=== PATIENT | male | born 1955 | race Caucasian/White ===

== ENCOUNTER 2017-11-20 15:14 | Inpatient (IN) | payer BC, OTHER ==
--- NOTE | 2017-11-20 16:31 | ED PDOC ---
HPI: Back Time Seen by Provider: 11/20/17 15:54 Chief Complaint (Nursing): Lower Extremity Problem/Injury Chief Complaint (Provider): Low Back Pain History Per: Patient History/Exam Limitations: no limitations Onset/Duration Of Symptoms: Other (several months) Current Symptoms Are (Timing): Still Present Previous Symptoms: Back Pain, Chronic Pain, Prior Surgery Additional Complaint(s): 62 year old male with a past medical history of CAD with a stent, high cholesterol, chronic back pain, and rectal cancer s/p radiation and chemotherapy , who presents to the ED with low back pain ongoing for several months worsening since onset. Patient was diagnosed with herniated discs impinging on nerve and underwent previous back surgery. Since then he has developed a LEFT foot drop. Denies urine or bowel incontinence or retentions. Sent to ER by Neurosurgeon for further evaluation. Patient also reports a small rash on his left buttock. States the rash is itchy, red, and has a slight burning sensation. Says the rash is similar in presentation to a rash he had when diagnosed with shingles. Reports he was given Valtrex in the past with good relief of rash. PMD: Kenia Arias Past Medical History Reviewed: Historical Data, Nursing Documentation, Vital Signs Vital Signs: Last Vital Signs Temp 98.3 F 11/20/17 15:48 Pulse 90 11/20/17 15:48 Resp 16 11/20/17 15:48 BP 152/77 H 11/20/17 15:48 Pulse Ox 100 11/20/17 15:48 - Medical History PMH: Back Problems, CAD (with stent), Hypercholesterolemia Other PMH: Rectal cancer s/p radiation and chemotherapy - Surgical History Surgical History: No Surg Hx - Family History Family History: States: Unknown Family Hx Other Family History: high cholesterol - Social History Current smoker - smoking cessation education provided: No Drugs: Denies - Home Medications Home Medications: Ambulatory Orders Medication Instructions Recorded Aspirin [Ecotrin] 81 mg PO DAILY 11/20/17 Atorvastatin [Lipitor] 20 mg PO DAILY 11/20/17 Cholecalciferol [Vitamin D 1000 IU] 1 tab PO DAILY 11/20/17 Escitalopram [Lexapro] 10 mg PO DAILY 11/20/17 Pregabalin [Lyrica] 75 mg PO Q12 11/20/17 Vitamin E [Vitamin E 400 Units Cap] 1 cap PO DAILY 11/20/17 Zolpidem [Ambien] 10 mg PO HS 11/20/17 Dexamethasone [Decadron] 2 mg PO Q12 #6 tab 11/23/17 traMADol [Ultram] 50 mg PO Q8 #20 tab 11/23/17 - Allergies Allergies/Adverse Reactions: Allergies Allergy/AdvReac Type Severity Reaction Status Date / Time rosuvastatin [From Crestor] Allergy RASH Verified 11/20/17 15:49 percocet Allergy Mild ITCHING Uncoded 11/22/17 18:04 Review of Systems ROS Statement: Except As Marked, All Systems Reviewed And Found Negative Gastrointestinal: Negative for: Constipation Genitourinary Male: Negative for: Dysuria, Frequency, Incontinence Musculoskeletal: Positive for: Back Pain (with left foot drop) Skin: Positive for: Rash (left buttock) Physical Exam - Reviewed Nursing Documentation Reviewed: Yes Vital Signs Reviewed: Yes - Physical Exam Appears: Positive for: Uncomfortable, In Acute Distress (painful distress) Head Exam: Positive for: NORMOCEPHALIC Skin: Positive for: Warm, Dry, Rash (2 cm x 2 cm erythematous rash on left buttock with dew drop papules) Eye Exam: Positive for: EOMI, PERRL ENT: Negative for: Pharyngeal Erythema, Tonsillar Exudate Neck: Positive for: Painless ROM, Supple Cardiovascular/Chest: Positive for: Regular Rate, Rhythm. Negative for: Murmur Respiratory: Positive for: Normal Breath Sounds. Negative for: Respiratory Distress Gastrointestinal/Abdominal: Positive for: Soft. Negative for: Tenderness Back: Positive for: Vertebral Tenderness (diffuse midline and paraspinal tenderness to palpation) Extremity: Positive for: Other (LEFT foot in brace for foot drop). Negative for : Pedal Edema, Deformity Lymphatic: Negative for: Adenopathy Neurologic/Psych: Positive for: Alert, Oriented (x3) - Laboratory Results Result Diagrams: 11/23/17 04:45 11/22/17 05:00 - ECG ECG Rhythm: Positive for: Normal ST Segment, Sinus Rhythm, Nonspecific Changes ( Qs in inferior leads) O2 Sat by Pulse Oximetry: 100 Pulse Ox Interpretation: Normal Medical Decision Making Medical Decision Making: Time: 16:01 Initial Impression: Intractable back pain and mild shingles Initial Plan: --Blood type and screen --EKG --CMP --Magnesium --Phosphorus --ED Urine dipstick --CBC w/ differential --PTT/PT --CXR --Decadron 10 mg IVP --Zovirax 500 mg Inj --IV Insertion --Isolation Type Q12 --Reevaluation --Discussed with Dr. Terrazas, [facility] resident, admitting for Dr. Wharton. Patient will be hospitalized for further neurological management. Accession No. : [id number] Patient Name / ID : DONALD DONALDSON / [id number] Exam Date : 11/20/2017 16:11:53 ( Approved ) Study Comment : Sex / Age : M / 62Y Creator : Alon Cao MD Dictator : Alon Cao MD Software Publisher : Shipping Receiving Clerk : Alon Cao MD Approver2 : Report Date : 11/20/2017 16:38:46 My Comment : HISTORY: severe back pain COMPARISON: No prior. FINDINGS: LUNGS: No active pulmonary disease. PLEURA: No significant pleural effusion identified, no pneumothorax apparent. CARDIOVASCULAR: Normal. OSSEOUS STRUCTURES: Degenerative changes. VISUALIZED UPPER ABDOMEN: Normal. OTHER FINDINGS: Right subclavian access chest port with catheter tip in the distal SVC. IMPRESSION: No active disease. Scribe Attestation: Documented by Pete Green, acting as a scribe for Eliza Bower MD. Provider Scribe Attestation: All medical record entries made by the Scribe were at my direction and personally dictated by me. I have reviewed the chart and agree that the record accurately reflects my personal performance of the history, physical exam, medical decision making, and the department course for this patient. I have also personally directed, reviewed, and agree with the discharge instructions and disposition. Disposition - Clinical Impression Clinical Impression: Lumbar disc disease, Intractable pain, Zoster - Patient ED Disposition Is Patient to be Admitted: Yes Discussed With : Scar Wharton Comment: FP resident Dr Terrazas who evaluated the patient in ER Doctor Will See Patient In The: Hospital Counseled Patient/Family Regarding: Diagnosis - Disposition Disposition Time: 16:06 Condition: STABLE - Pt Status Changed To: Hospital Disposition Of: Inpatient - Admit Certification Admit to Inpatient:: After my assessment, the patient will require hospitalization for at least two midnights. This is because of the severity of symptoms shown, intensity of services needed, and/or the medical risk in this patient being treated as an outpatient. - POA Present On Arrival: Falls Or Trauma (risk)
--- NOTE | 2017-11-20 16:40 | RAD ---
HISTORY: severe back pain COMPARISON: No prior. FINDINGS: LUNGS: No active pulmonary disease. PLEURA: No significant pleural effusion identified, no pneumothorax apparent. CARDIOVASCULAR: Normal. OSSEOUS STRUCTURES: Degenerative changes. VISUALIZED UPPER ABDOMEN: Normal. OTHER FINDINGS: Right subclavian access chest port with catheter tip in the distal SVC. IMPRESSION: No active disease.
[2017-11-20 17:27] LABS: BASO % 0.3 % (0.0-2.0); EOS % 0.6 % (0.0-4.0); HEMOGLOBIN 13.5 g/dL (12.0-18.0); LYMPH # 1.2 K/uL (1.0-4.3); LYMPH % 18.1 % (20.0-40.0); MEAN CELL VOLUME 89.5 fl (80.0-94.0); MEAN CORPUSCULAR HEMOGLOBIN 30.1 pg (27.0-31.0); MEAN CORPUSCULAR HGB CONC 33.6 g/dL (33.0-37.0); MEAN PLATELET VOLUME 7.1 fl (7.2-11.7); MONO # 0.6 K/uL (0.0-0.8); MONO % 8.8 % (0.0-10.0); NEUT # 4.7 K/uL (1.8-7.0); NEUT % 72.2 % (50.0-75.0); NRBC % 0.1 % (0.0-0.0); RBC 4.5 Mil/uL (4.40-5.90); RED CELL DISTRIBUTION WIDTH 13.1 % (11.5-14.5); WHITE BLOOD COUNT 6.5 K/uL (4.8-10.8)
[2017-11-20 17:32] LABS: INR 1.1 (0.9-1.2); PROTHROMBIN TIME 11.8 Seconds (9.8-13.1)
[2017-11-20 17:33] LABS: ALB/GLOB RATIO 1.5 (1.0-2.1); ALBUMIN 4.4 g/dL (3.5-5.0); ALT/SGPT 27 U/L (21-72); AST/SGOT 28 U/L (17-59); BLOOD UREA NITROGEN 18 mg/dl (9-20); CALCIUM 9.7 mg/dL (8.4-10.2); GFR AFRICAN-AMERICAN > 60; GFR NON-AFRICAN AMERICAN > 60; PARTIAL THROMBOPLASTIN TIME 31.5 Seconds (25.6-37.1)
[2017-11-20] MEDS ORDERED: HYDROmorphone 1 mg/ml ISec IVP PRN (20:11)
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
--- NOTE | 2017-11-20 23:18 | CP.PCM.CON ---
History of Present Illness - History of Present Illness History of Present Illness: Consultation for preoperative cardiovascular risk stratification HPI: 62 year old male with hx of CAD s/p PCI in 2000 at at [facility], lumbar disc herniation with back pain s/p surgical excision done at [facility] by complicated by foot drop , rectal ca s/p chemo/radiation last year presenting for surgical correction of lumbar disc herniation by . At baseline patient was very active prior to his last surgery with no active sx of ischemic heart disease. Denies any chest pain , sob, palpitations, dizziness, sycnope. Review of Systems - Review of Systems Systems not reviewed;Unavailable: Acuity of Condition - Constitutional Constitutional: As Per HPI - EENT Eyes: As Per HPI Ears: As Per HPI Nose/Mouth/Throat: As Per HPI - Cardiovascular Cardiovascular: As Per HPI - Respiratory Respiratory: As Per HPI - Gastrointestinal Gastrointestinal: As Per HPI - Genitourinary Genitourinary: As Per HPI - Reproductive: Male Reproductive:Male: As Per HPI - Musculoskeletal Musculoskeletal: As Per HPI, Radiating Pain into Limb - Integumentary Integumentary: As Per HPI - Neurological Neurological: As Per HPI, Focal Weakness, Radicular Pain - Psychiatric Psychiatric: As Per HPI - Endocrine Endocrine: As Per HPI - Hematologic/Lymphatic Hematologic: As Per HPI Past Patient History - Past Medical History & Family History Past Medical History?: Yes - Past Social History Smoking Status: Never Smoked - CARDIAC Hx Cardiac Disorders: Yes Hx Hypercholesterolemia: Yes Other/Comment: Stent in 2000 - PULMONARY Hx Respiratory Disorders: No - NEUROLOGICAL Hx Neurological Disorder: No - HEENT Hx HEENT Problems: No - RENAL Hx Chronic Kidney Disease: No - ENDOCRINE/METABOLIC Hx Endocrine Disorders: No - HEMATOLOGICAL/ONCOLOGICAL Hx Blood Disorders: Yes Hx Cancer: Yes (Rectal) - INTEGUMENTARY Hx Dermatological Problems: No - MUSCULOSKELETAL/RHEUMATOLOGICAL Hx Musculoskeletal Disorders: No Hx Falls: No - GASTROINTESTINAL Hx Gastrointestinal Disorders: Yes (Rectal cancer) - GENITOURINARY/GYNECOLOGICAL Hx Genitourinary Disorders: No - PSYCHIATRIC Hx Psychophysiologic Disorder: No Hx Substance Use: No - SURGICAL HISTORY Hx Surgeries: Yes Other/Comment: back SX - ANESTHESIA Hx Anesthesia: Yes Hx Anesthesia Reactions: No Meds Allergies/Adverse Reactions: Allergies Allergy/AdvReac Type Severity Reaction Status Date / Time rosuvastatin [From Crestor] Allergy RASH Verified 11/20/17 15:49 - Medications Medications: Current Medications Aspirin (Ecotrin) 81 mg PO DAILY [facility] Atorvastatin Calcium (Lipitor) 20 mg PO HS [facility] Last Admin: 11/20/17 21:19 Dose: 20 mg Escitalopram Oxalate (Lexapro) 10 mg PO DAILY [facility] Hydromorphone HCl (Dilaudid) 1 mg IVP Q4 PRN PRN Reason: Pain, moderate (4-7) Dextrose/Lactated Ringer's (Dextrose 5%/Lactated Ringer's) 1,000 mls @ 80 mls/ hr IV .[id number] [facility] Stop: 11/21/17 20:15 Ondansetron HCl (Zofran Inj) 4 mg IVP Q8 PRN PRN Reason: Nausea/Vomiting Pregabalin (Lyrica) 75 mg PO Q12 [facility] Last Admin: 11/20/17 21:19 Dose: 75 mg Vitamin E (Vitamin E 400 Units Cap) 400 intlu PO DAILY [facility] Zolpidem Tartrate (Ambien) 5 mg PO [facility] Physical Exam - Constitutional Appears: Well - Head Exam Head Exam: ATRAUMATIC, NORMAL INSPECTION, NORMOCEPHALIC - Eye Exam Eye Exam: EOMI, Normal appearance, PERRL Pupil Exam: NORMAL ACCOMODATION, PERRL - ENT Exam ENT Exam: Mucous Membranes Moist, Normal Exam - Neck Exam Neck exam: Positive for: Normal Inspection - Respiratory Exam Respiratory Exam: Clear to Auscultation Bilateral, NORMAL BREATHING PATTERN - Cardiovascular Exam Cardiovascular Exam: REGULAR RHYTHM, RRR, +S1, +S2, Systolic Murmur - GI/Abdominal Exam GI & Abdominal Exam: Normal Bowel Sounds, Soft. absent: Tenderness - Extremities Exam Extremities exam: Positive for: normal inspection - Back Exam Back exam: NORMAL INSPECTION - Neurological Exam Neurological exam: Alert, CN II-XII Intact, Oriented x3 - Psychiatric Exam Psychiatric exam: Normal Affect, Normal Mood - Skin Skin Exam: Dry, Intact, Normal Color, Warm Results - Vital Signs Recent Vital Signs: Last Vital Signs Temp 97.8 F 11/20/17 21:58 Pulse 81 11/20/17 22:15 Resp 18 11/20/17 22:15 BP 127/78 11/20/17 21:58 Pulse Ox 97 11/20/17 22:15 - Labs Result Diagrams: 11/20/17 17:15 02/27/18 17:15 Labs: Laboratory Results - last 24 hr 11/20/17 11/20/17 11/20/17 17:00 17:15 17:15 WBC 6.5 RBC 4.50 Hgb 13.5 Hct 40.3 MCV 89.5 MCH 30.1 MCHC 33.6 RDW 13.1 Plt Count 239 MPV 7.1 L Neut % (Auto) 72.2 Lymph % (Auto) 18.1 L [place] % (Auto) 8.8 Eos % (Auto) 0.6 Baso % (Auto) 0.3 Neut # (Auto) 4.7 Lymph # (Auto) 1.2 [place] # (Auto) 0.6 Eos # (Auto) 0.0 Baso # (Auto) 0.0 PT INR APTT Sodium 144 Potassium 4.3 Chloride 103 Carbon Dioxide 28 Anion Gap 17 BUN 18 Creatinine 0.9 Est GFR ( Amer) > 60 Est GFR (Non-Af Amer) > 60 Random Glucose 88 Calcium 9.7 Phosphorus 3.8 Magnesium 2.0 Total Bilirubin 0.5 AST 28 ALT 27 Alkaline Phosphatase 59 Total Protein 7.4 Albumin 4.4 Globulin 3.0 Albumin/Globulin Ratio 1.5 Blood Type A POSITIVE Antibody Screen Negative BBK History Checked No verified bt 11/20/17 17:15 WBC RBC Hgb Hct MCV MCH MCHC RDW Plt Count MPV Neut % (Auto) Lymph % (Auto) [place] % (Auto) Eos % (Auto) Baso % (Auto) Neut # (Auto) Lymph # (Auto) [place] # (Auto) Eos # (Auto) Baso # (Auto) PT 11.8 INR 1.1 APTT 31.5 Sodium Potassium Chloride Carbon Dioxide Anion Gap BUN Creatinine Est GFR ( Amer) Est GFR (Non-Af Amer) Random Glucose Calcium Phosphorus Magnesium Total Bilirubin AST ALT Alkaline Phosphatase Total Protein Albumin Globulin Albumin/Globulin Ratio Blood Type Antibody Screen BBK History Checked Assessment & Plan (1) Preop cardiovascular exam Assessment and Plan: as per ACc/AHA guidelines he can proceed with planned surgery with low risk for perioperative cardiac event Status: Acute (2) Hx of coronary artery disease Assessment and Plan: cont asa, statins EKG reviewed, old inferior UT consider adding low dose BB Status: Acute (3) Hx of percutaneous transluminal coronary angioplasty Status: Acute (4) Lumbar disc disease Status: Acute
[2017-11-21] MEDS: Dextrose 5%/Lactated Ringer's 1,000 ML IV SCH ×2 (05:51→20:41)
[2017-11-21] MEDS ORDERED: Etomidate 20 mg/10ml Inj IV ONE (07:09)
[2017-11-21] MEDS ORDERED: Succinylcholine 200 mg/10 ml Inj IV ONE (07:09)
[2017-11-21] MEDS ORDERED: Rocuronium 10 mg/ml (5 ml) ONE ×2 (07:09→08:50)
[2017-11-21] MEDS ORDERED: Propofol 10 mg/ml Inj (20 ML) ONE (07:09)
[2017-11-21] MEDS ORDERED: Lidocaine 4% (Laryng-O-Jet) Kit MM ONE (07:09)
[2017-11-21] MEDS ORDERED: Bupivacaine HCl 0.25% PF (30 ml) Inj ONE (07:12)
[2017-11-21] MEDS ORDERED: Absorbable Gelatin Sponge Size 12-7 ONE (07:12)
[2017-11-21] MEDS ORDERED: Lidocaine 1% w Epi 1:100,000 Inj ONE (07:12)
[2017-11-21] MEDS ORDERED: Thrombin Topical 5,000 Int Units Spray Kit ONE (07:13)
[2017-11-21] MEDS ORDERED: Dexamethasone 4 mg/1 ml ONE (07:14)
[2017-11-21] MEDS ORDERED: Lactated Ringer's 1,000 ML IV ONE ×2 (07:40→07:45)
[2017-11-21] MEDS ORDERED: Midazolam 2 MG/2 ML VIAL ONE (07:40)
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
[2017-11-21] MEDS ORDERED: Lidocaine 1% w Epi 1:100,000 Inj INJ ONE (08:00)
[2017-11-21] MEDS ORDERED: Sevoflurane - Inhalation Anesthetic Liq (250 ml) ONE (08:14)
[2017-11-21] MEDS ORDERED: Thrombin Topical 5,000 Int Units Spray Kit TOP ONE ×2 (08:36→09:35)
[2017-11-21] MEDS ORDERED: HEMOSTATIC MATRIX 10 ML DIS.NEEDLE TOP ONE ×2 (08:36→09:30)
[2017-11-21] MEDS ORDERED: Absorbable Gelatin Sponge Size 12-7 TP ONE ×2 (08:37→09:35)
[2017-11-21] MEDS ORDERED: Bupivacaine HCl 0.25% PF (30 ml) Inj IJ ONE ×3 (08:37→10:10)
[2017-11-21] MEDS ORDERED: APROTININ/FIBRINOGEN(TISSEEL) ONE (09:10)
[2017-11-21] MEDS ORDERED: ePHEDrine 50 mg/ml Inj ONE (09:32)
[2017-11-21] MEDS ORDERED: Lactated Ringer's 1,000 ML IV SCH (10:30)
[2017-11-21] MEDS ORDERED: Benzocaine/Menthol (Cepacol) Lozenge PO PRN (10:36)
[2017-11-21] MEDS: HYDROmorphone 0.5 mg/0.5 ml ISec IVP PRN ×2 (10:40→11:25)
--- NOTE | 2017-11-21 11:34 | CARD ---
APPROVED REPORT EKG Measurement Heart [id number] <Conclusion> Normal sinus rhythm Cannot rule out Inferior infarct, age undetermined Cannot rule out Anterior infarct, age undetermined Abnormal ECG
--- NOTE | 2017-11-21 11:48 | CARD ---
APPROVED REPORT EKG Measurement Heart [id number] <Conclusion> Normal sinus rhythm Inferior infarct, age undetermined Abnormal ECG
--- NOTE | 2017-11-21 12:04 | CP.PCM.PN ---
Subjective - Date & Time of Evaluation Date of Evaluation: 11/21/17 Time of Evaluation: 11:30 - Subjective Subjective: Patient evalauted at recovery room after Sx. No acute distress. Still feels weak after Sx. Pain controlled, 5/10 at this time. Denies nausea/vomiting/abd pain. Objective - Vital Signs/Intake and Output Vital Signs (last 24 hours): Temp Pulse Resp BP Pulse Ox 97.6 F 87 18 147/75 100 11/21/17 10:35 11/21/17 10:35 11/21/17 10:35 11/21/17 10:35 11/21/17 10:35 Intake and Output: 11/21/17 11/21/17 06:59 18:59 Intake Total 1000 Balance 1000 - Medications Medications: Current Medications Aspirin (Ecotrin) 81 mg PO DAILY [facility] Last Admin: 11/21/17 09:39 Dose: Not Given Atorvastatin Calcium (Lipitor) 20 mg PO HS [facility] Last Admin: 11/20/17 21:19 Dose: 20 mg Benzocaine/Menthol (Cepacol Sore Throat) 1 alexi PO Q3 PRN PRN Reason: Sore Throat Dexamethasone (Decadron Inj) 4 mg IVP Q6 [facility] Enoxaparin Sodium (Lovenox) 40 mg SC DAILY [facility] PRN Reason: Protocol Escitalopram Oxalate (Lexapro) 10 mg PO DAILY [facility] Last Admin: 11/21/17 09:39 Dose: Not Given Hydromorphone HCl (Dilaudid) 1 mg IVP Q4 PRN PRN Reason: Pain, moderate (4-7) Hydromorphone HCl (Dilaudid) 0.5 mg IVP Q5M PRN PRN Reason: Pain, moderate (4-7) Stop: 11/21/17 12:26 Last Admin: 11/21/17 11:25 Dose: 0.5 mg Hydromorphone HCl (Dilaudid 0.2 Mg/Ml Batch Dumper) 0 mg IV PRN PRN; Protocol PRN Reason: Pain, moderate (4-7) Dextrose/Lactated Ringer's (Dextrose 5%/Lactated Ringer's) 1,000 mls @ 80 mls/ hr IV .[id number] [facility] Stop: 11/21/17 20:15 Last Admin: 11/21/17 05:51 Dose: 80 mls/hr Lactated Ringer's (Lactated Ringer's) 1,000 mls @ 100 mls/hr IV .Q10H [facility] Cefazolin Sodium 1 gm/ Sodium (Chloride) 100 mls @ 100 mls/hr IVPB Q8 [facility] PRN Reason: Protocol Ondansetron HCl (Zofran Inj) 4 mg IVP Q8 PRN PRN Reason: Nausea/Vomiting Ondansetron HCl (Zofran Inj) 4 mg IVP ONCE PRN PRN Reason: Nausea/Vomiting Stop: 11/21/17 12:27 Pregabalin (Lyrica) 75 mg PO Q12 [facility] Last Admin: 11/21/17 09:39 Dose: Not Given Vitamin E (Vitamin E 400 Units Cap) 400 intlu PO DAILY [facility] Last Admin: 11/21/17 09:39 Dose: Not Given Zolpidem Tartrate (Ambien) 5 mg PO HS [facility] Last Admin: 11/20/17 23:11 Dose: 5 mg - Labs Labs: 11/20/17 17:15 11/20/17 17:15 PT 11.8 Seconds (9.8-13.1) 11/20/17 17:15 INR 1.1 (0.9-1.2) 11/20/17 17:15 APTT 31.5 Seconds (25.6-37.1) 11/20/17 17:15 - Constitutional Appears: Non-toxic - Eye Exam Eye Exam: EOMI, PERRL - ENT Exam ENT Exam: Mucous Membranes Moist - Cardiovascular Exam Cardiovascular Exam: REGULAR RHYTHM, +S1, +S2. absent: Gallop - GI/Abdominal Exam GI & Abdominal Exam: Soft, Normal Bowel Sounds. absent: Rigid, Rebound - Extremities Exam Extremities Exam: Normal Capillary Refill. absent: Pedal Edema - Neurological Exam Neurological Exam: Alert, Awake, Motor Sensory Deficit (L/foot drop. Generalized weakness due to anesthesia), Oriented x3 Assessment and Plan - Assessment and Plan (Free Text) Assessment: Lumbar disc disease S/p Lumbar laminectomy Stable after Sx C/W Abx, steroids and supportive treatment To be transferred to Telemetry unit for monitoring Herpetic lesions Buttock area C/W Acyclovir Patient does not need to be isolated
--- NOTE | 2017-11-21 14:37 | RAD ---
PROCEDURE: HISTORY: As above COMPARISON: None TECHNIQUE: Total fluoroscopic time utilized during the procedure: 8.1 seconds ; 3.54 mGy cm 2 FINDINGS: Submitted images from the current procedure: 1 Please refer to the physician's notes performing the procedure. IMPRESSION: Less than 1 hour fluoroscopic time utilized during performance of the procedure
[2017-11-21] MEDS ORDERED: Dexamethasone 4 MG in Sodium Chloride 0.9% 50 ML IVPB SCH (16:00)
--- NOTE | 2017-11-21 17:17 | OP ---
PROCEDURE DATE: 11/21/2017 PREOPERATIVE DIAGNOSES: Lumbar spondylosis and herniated disc. POSTOPERATIVE DIAGNOSES: Lumbar spondylosis and herniated disc. PROCEDURE: L3-L5 lumbar laminectomy, L3-L5 posterolateral effusion, fluoroscope has been used, microscope has been used. SURGEON: Steven Guerra MD VENEER MEASURER: Rand Caldwell, physician assistant professor surgical technology who stayed throughout the case from beginning to the end, helped me perform the surgery. DESCRIPTION OF PROCEDURE: The patient was brought to the operating room, anesthetized with general endotracheal anesthesia, placed in a prone position on the Vicente table. Care was taken to protect all the pressure points. Back of the lumbar area thoroughly prepped and draped in same sterile manner after marking of the skin incision for lumbar laminectomy at L3-L5. The previously made skin incision scar has been noted. After prepping and draping the area, skin has been incised extended the skin incision. Bleeding skins have been controlled by bipolar margin analyst. Using a Bovie margin analyst, paraspinal muscles have been detached, attachments of spinous process and lamina at L3, L4 and L5 on both sides. On the left side, hemilaminotomy defect has been observed and scar tissue has been removed. After this point by using a Leksell rongeur, after identification of levels with the help of fluoroscopy, the spinous process of L3, L4, L5 have been removed. By using a high-speed drill, the lamina of L3, L4, L5 had been drilled to actual thickness. By using a Kerrison punch, all the bone, thinned out some lamina, medial part of the facets and scar tissue, ligamentum flavum has been removed decomposing the area from L3-L5. At L3-L4 area next to the pedicle of L4, the dissection has been done. There was a scar tissue along with small disc herniation along with osteophyte noted and part of it has been removed. Part of it to the dura and it has been left in place for fear of the CSF leak, although foraminotomy performed at both levels, decomposing this area and once this has been decompressed, the later aspect of facet joint, transverse process have been decorticated, demineralized bone placed in the area achieving a posterolateral fusion. After that hemostasis best achieved. Vicente drain was placed in the wound, brought out through a separate stab incision next to the skin incision. The muscles and fascia closed with 1 Vicryl, subcutaneous with 3 Vicryl, skin has been closed with stitches. The patient tolerated the procedure, after procedure mobilized to the recovery room in stable condition. Steven Guerra MD
[2017-11-21] MEDS: Dexamethasone 4 mg/1 ml IVP SCH ×2 (20:39→21:37)
[2017-11-21] MEDS: ceFAZolin 1 GM in Sodium Chloride 0.9% 100 ML IVPB SCH (20:39)
--- NOTE | 2017-11-21 20:57 | CP.PCM.PN ---
Subjective - Date & Time of Evaluation Date of Evaluation: 11/21/17 Time of Evaluation: 14:00 - Subjective Subjective: pt tolerated surgery well Objective - Vital Signs/Intake and Output Vital Signs (last 24 hours): Temp Pulse Resp BP Pulse Ox 98.1 F 101 H 20 118/72 98 11/21/17 19:27 11/21/17 19:27 11/21/17 19:27 11/21/17 19:27 11/21/17 19:27 Intake and Output: 11/21/17 11/22/17 18:59 06:59 Intake Total 1200 Output Total 590 Balance 610 - Medications Medications: Current Medications Aspirin (Ecotrin) 81 mg PO DAILY [facility] Last Admin: 11/21/17 09:39 Dose: Not Given Atorvastatin Calcium (Lipitor) 20 mg PO HS [facility] Last Admin: 11/20/17 21:19 Dose: 20 mg Benzocaine/Menthol (Cepacol Sore Throat) 1 alexi PO Q3 PRN PRN Reason: Sore Throat Dexamethasone (Decadron Inj) 4 mg IVP Q6 [facility] Last Admin: 11/21/17 20:39 Dose: Not Given Enoxaparin Sodium (Lovenox) 40 mg SC DAILY [facility] PRN Reason: Protocol Escitalopram Oxalate (Lexapro) 10 mg PO DAILY [facility] Last Admin: 11/21/17 09:39 Dose: Not Given Hydromorphone HCl (Dilaudid 0.2 Mg/Ml Applications Processor) 0 mg IV PRN PRN; Protocol PRN Reason: Pain, moderate (4-7) Last Admin: 11/21/17 11:55 Dose: 6 mg Lactated Ringer's (Lactated Ringer's) 1,000 mls @ 100 mls/hr IV .Q10H [facility] Cefazolin Sodium 1 gm/ Sodium (Chloride) 100 mls @ 100 mls/hr IVPB Q8 [facility] PRN Reason: Protocol Last Admin: 11/21/17 20:39 Dose: Not Given Ondansetron HCl (Zofran Inj) 4 mg IVP Q8 PRN PRN Reason: Nausea/Vomiting Pregabalin (Lyrica) 75 mg PO Q12 [facility] Last Admin: 11/21/17 09:39 Dose: Not Given Vitamin E (Vitamin E 400 Units Cap) 400 intlu PO DAILY [facility] Last Admin: 02/28/18 09:39 Dose: Not Given Zolpidem Tartrate (Ambien) 5 mg PO HS [facility] Last Admin: 11/20/17 23:11 Dose: 5 mg - Labs Labs: 11/20/17 17:15 11/20/17 17:15 PT 11.8 Seconds (9.8-13.1) 11/20/17 17:15 INR 1.1 (0.9-1.2) 11/20/17 17:15 APTT 31.5 Seconds (25.6-37.1) 11/20/17 17:15 - Constitutional Appears: Well - Head Exam Head Exam: ATRAUMATIC, NORMAL INSPECTION, NORMOCEPHALIC - Eye Exam Eye Exam: EOMI, Normal appearance, PERRL Pupil Exam: NORMAL ACCOMODATION, PERRL - ENT Exam ENT Exam: Mucous Membranes Moist, Normal Exam - Neck Exam Neck Exam: Full ROM, Normal Inspection. absent: Lymphadenopathy - Respiratory Exam Respiratory Exam: Clear to Ausculation Bilateral, NORMAL BREATHING PATTERN - Cardiovascular Exam Cardiovascular Exam: REGULAR RHYTHM, +S1, +S2. absent: Murmur - GI/Abdominal Exam GI & Abdominal Exam: Soft, Normal Bowel Sounds. absent: Tenderness - Extremities Exam Extremities Exam: Full ROM, Normal Capillary Refill, Normal Inspection. absent : Joint Swelling, Pedal Edema - Back Exam Back Exam: NORMAL INSPECTION - Neurological Exam Neurological Exam: Alert, Awake, CN II-XII Intact, Normal Gait, Oriented x3 - Psychiatric Exam Psychiatric exam: Normal Affect, Normal Mood - Skin Skin Exam: Dry, Intact, Normal Color, Warm Assessment and Plan (1) Preop cardiovascular exam Status: Acute (2) Hx of coronary artery disease Status: Acute (3) Hx of percutaneous transluminal coronary angioplasty Status: Acute (4) Lumbar disc disease Status: Acute
[2017-11-22] MEDS: ceFAZolin 1 GM in Sodium Chloride 0.9% 100 ML IVPB SCH ×3 (00:20→17:20)
[2017-11-22] MEDS: Dexamethasone 4 mg/1 ml IVP SCH ×3 (04:55→21:35)
[2017-11-22 05:43] LABS: BASO % 0.1 % (0.0-2.0); HEMOGLOBIN 11.5 g/dL (12.0-18.0); LYMPH # 0.9 K/uL (1.0-4.3); LYMPH % 5.9 % (20.0-40.0); MEAN CELL VOLUME 88.6 fl (80.0-94.0); MEAN CORPUSCULAR HEMOGLOBIN 29.4 pg (27.0-31.0); MEAN CORPUSCULAR HGB CONC 33.2 g/dL (33.0-37.0); MONO % 6.8 % (0.0-10.0); NEUT % 87.2 % (50.0-75.0); NRBC % 0.1 % (0.0-0.0); PLATELET COUNT 213 K/uL (130-400); WHITE BLOOD COUNT 14.9 K/uL (4.8-10.8)
[2017-11-22 06:17] LABS: BLOOD UREA NITROGEN 18 mg/dl (9-20); CALCIUM 8.9 mg/dL (8.4-10.2); GFR AFRICAN-AMERICAN > 60; GFR NON-AFRICAN AMERICAN > 60
[2017-11-22] MEDS: Enoxaparin 40 mg Syringe SC SCH (09:59)
[2017-11-22 10:55] LABS: BANDS 1 % (0-2); HYPOCHROMIC SLIGHT; LYMPHOCYTE 3 % (20-50); MONOCYTE 6 % (0-10); NEUTROPHIL 90 % (42-75); PLATELET ESTIMATE NORMAL (NORMAL); TOTAL CELLS COUNTED 100
[2017-11-22 10:56] LABS: OVALOCYTES SLIGHT; TEARDROP CELLS SLIGHT
--- NOTE | 2017-11-22 11:34 | CP.PCM.PN ---
Subjective - Date & Time of Evaluation Date of Evaluation: 11/22/17 Time of Evaluation: 10:40 - Subjective Subjective: Doing better, alert, talkative. C/o same chronic pain only on R/LE today. POD 1. No events overnight. Tolerating PO diet. Denies CP, dizziness, changes in urination or stools. Objective - Vital Signs/Intake and Output Vital Signs (last 24 hours): Temp Pulse Resp BP Pulse Ox 98.6 F 86 18 132/71 99 11/22/17 08:00 11/22/17 08:00 11/22/17 08:00 11/22/17 08:00 11/22/17 08:00 Intake and Output: 11/22/17 11/22/17 06:59 18:59 Intake Total 1780 Output Total 1260 Balance 520 - Medications Medications: Current Medications Aspirin (Ecotrin) 81 mg PO DAILY [facility] Last Admin: 11/22/17 09:57 Dose: 81 mg Atorvastatin Calcium (Lipitor) 20 mg PO HS [facility] Last Admin: 11/21/17 21:38 Dose: 20 mg Benzocaine/Menthol (Cepacol Sore Throat) 1 alexi PO Q3 PRN PRN Reason: Sore Throat Dexamethasone (Decadron Inj) 4 mg IVP Q12 [facility] Enoxaparin Sodium (Lovenox) 40 mg SC DAILY [facility] PRN Reason: Protocol Last Admin: 11/22/17 09:59 Dose: 40 mg Escitalopram Oxalate (Lexapro) 10 mg PO DAILY [facility] Last Admin: 11/22/17 09:59 Dose: 10 mg Lactated Ringer's (Lactated Ringer's) 1,000 mls @ 100 mls/hr IV .Q10H [facility] Cefazolin Sodium 1 gm/ Sodium (Chloride) 100 mls @ 100 mls/hr IVPB Q8 [facility] PRN Reason: Protocol Last Admin: 11/22/17 09:53 Dose: 100 mls/hr Ondansetron HCl (Zofran Inj) 4 mg IVP Q8 PRN PRN Reason: Nausea/Vomiting Pregabalin (Lyrica) 75 mg PO Q12 [facility] Last Admin: 11/22/17 10:17 Dose: 75 mg Vitamin E (Vitamin E 400 Units Cap) 400 intlu PO DAILY [facility] Last Admin: 11/22/17 10:00 Dose: 400 intlu Zolpidem Tartrate (Ambien) 5 mg PO HS [facility] Last Admin: 11/21/17 21:37 Dose: 5 mg - Labs Labs: 11/22/17 05:00 11/22/17 05:00 PT 11.8 Seconds (9.8-13.1) 11/20/17 17:15 INR 1.1 (0.9-1.2) 11/20/17 17:15 APTT 31.5 Seconds (25.6-37.1) 11/20/17 17:15 - Constitutional Appears: Non-toxic, No Acute Distress - Eye Exam Eye Exam: EOMI, PERRL - ENT Exam ENT Exam: Mucous Membranes Moist - Respiratory Exam Respiratory Exam: Clear to Ausculation Bilateral, NORMAL BREATHING PATTERN. absent: Rales - Cardiovascular Exam Cardiovascular Exam: REGULAR RHYTHM, +S1, +S2. absent: Gallop - GI/Abdominal Exam GI & Abdominal Exam: Soft, Normal Bowel Sounds. absent: Tenderness, Rebound - Extremities Exam Extremities Exam: absent: Calf Tenderness, Pedal Edema, Tenderness - Back Exam Back Exam: absent: CVA tenderness (L), CVA tenderness (R) - Neurological Exam Neurological Exam: Alert, Awake, Oriented x3 - Psychiatric Exam Psychiatric exam: Normal Affect, Normal Mood - Skin Skin Exam: Normal Color, Warm Assessment and Plan - Assessment and Plan (Free Text) Assessment: S/P lumbar laminectomy POD 1 Doing well Stable Need PT eval C/W pain control Sx drainage noted, still moderate amount present F/U NeuroSx recs WBC elevated: Poss due to steroids SE
--- NOTE | 2017-11-22 15:45 | CP.PCM.PN ---
Subjective - Date & Time of Evaluation Date of Evaluation: 11/22/17 Time of Evaluation: 09:00 - Subjective Subjective: Patient seen and examined at bedside comfortable. Pain is well controlled. Miriam diet. Positive void. Neg BM. No acute events overnight Objective - Vital Signs/Intake and Output Vital Signs (last 24 hours): Temp Pulse Resp BP Pulse Ox 98.1 F 98 H 18 173/89 H 94 L 11/22/17 12:00 11/22/17 13:05 11/22/17 12:00 11/22/17 13:05 11/22/17 13:05 Intake and Output: 11/22/17 11/22/17 06:59 18:59 Intake Total 1780 Output Total 1260 Balance 520 - Medications Medications: Current Medications Aspirin (Ecotrin) 81 mg PO DAILY [facility] Last Admin: 11/22/17 09:57 Dose: 81 mg Atorvastatin Calcium (Lipitor) 20 mg PO HS [facility] Last Admin: 11/21/17 21:38 Dose: 20 mg Benzocaine/Menthol (Cepacol Sore Throat) 1 alexi PO Q3 PRN PRN Reason: Sore Throat Dexamethasone (Decadron Inj) 4 mg IVP Q12 [facility] Enoxaparin Sodium (Lovenox) 40 mg SC DAILY [facility] PRN Reason: Protocol Last Admin: 11/22/17 09:59 Dose: 40 mg Escitalopram Oxalate (Lexapro) 10 mg PO DAILY [facility] Last Admin: 11/22/17 09:59 Dose: 10 mg Lactated Ringer's (Lactated Ringer's) 1,000 mls @ 100 mls/hr IV .Q10H [facility] Cefazolin Sodium 1 gm/ Sodium (Chloride) 100 mls @ 100 mls/hr IVPB Q8 [facility] PRN Reason: Protocol Last Admin: 11/22/17 09:53 Dose: 100 mls/hr Ondansetron HCl (Zofran Inj) 4 mg IVP Q8 PRN PRN Reason: Nausea/Vomiting Pregabalin (Lyrica) 75 mg PO Q12 [facility] Last Admin: 11/22/17 10:17 Dose: 75 mg Vitamin E (Vitamin E 400 Units Cap) 400 intlu PO DAILY [facility] Last Admin: 11/22/17 10:00 Dose: 400 intlu Zolpidem Tartrate (Ambien) 5 mg PO HS [facility] Last Admin: 11/21/17 21:37 Dose: 5 mg - Labs Labs: 11/22/17 05:00 11/22/17 05:00 PT 11.8 Seconds (9.8-13.1) 11/20/17 17:15 INR 1.1 (0.9-1.2) 11/20/17 17:15 APTT 31.5 Seconds (25.6-37.1) 11/20/17 17:15 - Back Exam Additional comments: Dressings clean dry and intact. ORA drain with 60 cc's serosang drainage over last 12 hrs. Mild tenderness about wound. no ecchymosis - Neurological Exam Neurological Exam: Alert, Awake, Oriented x3 Neuro motor strength exam: Right Lower Extremity: 5 Additional comments: LLE weakness, left dorsiflexion 0-1/5,plantar flexion 3+ to 4/5,decreased sensation left l4-5 dermatome Assessment and Plan (1) Lumbar disc disease Assessment & Plan: Patient is POD#1 from L3-L5 laminectomy doing well -Pain control -will keep drain and monitor output, possible remove julius AM -PT/OT WBAT -abd binder -d/c planning -case and plan discussed in agreement with Dr. Guerra Status: Acute
[2017-11-22] MEDS ORDERED: Oxycodone/Acetaminophen 5/325 mg Tab PO PRN (15:52)
[2017-11-23] MEDS: ceFAZolin 1 GM in Sodium Chloride 0.9% 100 ML IVPB SCH (00:39)
[2017-11-23 00:58] VITALS: RESP 18
[2017-11-23 06:23] LABS: EOS # 0.4 K/uL (0.0-0.7); EOS % 2.9 % (0.0-4.0); HEMOGLOBIN 12.1 g/dL (12.0-18.0); LYMPH % 22.9 % (20.0-40.0); MEAN CELL VOLUME 88.2 fl (80.0-94.0); MEAN CORPUSCULAR HEMOGLOBIN 30.7 pg (27.0-31.0); MEAN CORPUSCULAR HGB CONC 34.8 g/dL (33.0-37.0); MEAN PLATELET VOLUME 7.3 fl (7.2-11.7); MONO # 3.8 K/uL (0.0-0.8); MONO % 28.6 % (0.0-10.0); NEUT % 45.6 % (50.0-75.0); NRBC % 0.1 % (0.0-0.0); PLATELET COUNT 214 K/uL (130-400); RBC 3.93 Mil/uL (4.40-5.90); RED CELL DISTRIBUTION WIDTH 12.9 % (11.5-14.5); WHITE BLOOD COUNT 13.1 K/uL (4.8-10.8)
[2017-11-23 08:36] LABS: ANISOCYTOSIS SLIGHT; GIANT PLATELETS PRESENT; LARGE PLATELETS PRESENT; LYMPHOCYTE 5 % (20-50); MONOCYTE 1 % (0-10); NEUTROPHIL 94 % (42-75); PLATELET ESTIMATE NORMAL (NORMAL); TOTAL CELLS COUNTED 100
--- NOTE | 2017-11-23 09:08 | CP.PCM.PN ---
Subjective - Date & Time of Evaluation Date of Evaluation: 11/23/17 Time of Evaluation: 08:00 - Subjective Subjective: Patient seen and examined at bedside comfortable. Pain is well controlled. Tolerating diet. No acute events overnight. Objective - Vital Signs/Intake and Output Vital Signs (last 24 hours): Temp Pulse Resp BP Pulse Ox 98 F 78 18 146/81 98 11/23/17 08:37 11/23/17 08:37 11/23/17 08:37 11/23/17 08:37 11/23/17 08:37 Intake and Output: 11/23/17 11/23/17 06:59 18:59 Intake Total 600 Output Total 30 Balance 570 - Medications Medications: Current Medications Aspirin (Ecotrin) 81 mg PO DAILY [facility] Last Admin: 11/22/17 09:57 Dose: 81 mg Atorvastatin Calcium (Lipitor) 20 mg PO HS [facility] Last Admin: 11/22/17 21:35 Dose: 20 mg Benzocaine/Menthol (Cepacol Sore Throat) 1 alexi PO Q3 PRN PRN Reason: Sore Throat Dexamethasone (Decadron Inj) 4 mg IVP Q12 [facility] Last Admin: 11/22/17 21:35 Dose: 4 mg Docusate Sodium (Colace) 100 mg PO BID [facility] Last Admin: 11/22/17 16:04 Dose: 100 mg Enoxaparin Sodium (Lovenox) 40 mg SC DAILY [facility] PRN Reason: Protocol Last Admin: 11/22/17 09:59 Dose: 40 mg Escitalopram Oxalate (Lexapro) 10 mg PO DAILY [facility] Last Admin: 11/22/17 09:59 Dose: 10 mg Cefazolin Sodium 1 gm/ Sodium (Chloride) 100 mls @ 100 mls/hr IVPB Q8 [facility] PRN Reason: Protocol Last Admin: 11/23/17 00:39 Dose: 100 mls/hr Ondansetron HCl (Zofran Inj) 4 mg IVP Q8 PRN PRN Reason: Nausea/Vomiting Pregabalin (Lyrica) 75 mg PO Q12 [facility] Last Admin: 11/22/17 21:35 Dose: 75 mg Tramadol HCl (Ultram) 50 mg PO QID PRN PRN Reason: Pain, moderate (4-7) Last Admin: 11/23/17 06:04 Dose: 50 mg Vitamin E (Vitamin E 400 Units Cap) 400 intlu PO DAILY [facility] Last Admin: 11/22/17 10:00 Dose: 400 intlu Zolpidem Tartrate (Ambien) 5 mg PO HS PRN PRN Reason: sleep - Labs Labs: 11/23/17 04:45 11/22/17 05:00 PT 11.8 Seconds (9.8-13.1) 11/20/17 17:15 INR 1.1 (0.9-1.2) 11/20/17 17:15 APTT 31.5 Seconds (25.6-37.1) 11/20/17 17:15 - Back Exam Additional comments: Dressings clean dry and intact. Dressing removed revealing wound clean, dry and intact. ORA drain with 30 cc's serosang drainage over last 12 hrs. Minimal tenderness about wound. no ecchymosis - Neurological Exam Neurological Exam: Alert, Awake, Oriented x3 Neuro motor strength exam: Right Lower Extremity: 5 Additional comments: LLE weakness, left dorsiflexion 0-1/5,plantar flexion 3+ to 4/5,decreased sensation left l4-5 dermatome Assessment and Plan (1) Lumbar disc disease Assessment & Plan: Patient is POD#2 from L3-L5 laminectomy doing well -Pain control -Drain removed and dressings changed this AM -PT/OT WBAT -abd binder while OOB -clear to discharge from neurosurgery standpoint -case and plan discussed in agreement with Dr. Guerra Status: Acute
[2017-11-23] MEDS: Dexamethasone 4 mg/1 ml IVP SCH (09:12)
[2017-11-23] MEDS: Enoxaparin 40 mg Syringe SC SCH (09:13)
[2017-11-23 12:45] VITALS: BP 126/74; PULSE 74; TEMP 97.9
--- NOTE | 2017-11-23 14:02 | CP.PCM.DIS ---
Provider - Provider Date of Admission: 11/20/17 16:06 Attending physician: Scar Wharton MD Consults: Neurosurgery Cardiology Time Spent in preparation of Discharge (in minutes): 30 Diagnosis - Discharge Diagnosis (1) S/P laminectomy Status: Acute Comment: Stable. To c/w PT at home. Pain control (2) Lumbar disc disease Status: Acute Comment: S/P L3-L5 laminectomy. Doing well. PT at home (3) CAD (coronary artery disease) Status: Acute Comment: Asymptomatic. Cardiology evaluated. C/W Same home [facility] Course - Lab Results Lab Results: Most Recent Lab Values WBC 13.1 K/uL (4.8-10.8) H 11/23/17 04:45 RBC 3.93 Mil/uL (4.40-5.90) L 11/23/17 04:45 Hgb 12.1 g/dL (12.0-18.0) 11/23/17 04:45 Hct 34.7 % (35.0-51.0) L 11/23/17 04:45 MCV 88.2 fl (80.0-94.0) 11/23/17 04:45 MCH 30.7 pg (27.0-31.0) 11/23/17 04:45 MCHC 34.8 g/dL (33.0-37.0) 11/23/17 04:45 RDW 12.9 % (11.5-14.5) 11/23/17 04:45 Plt Count 214 K/uL (130-400) 11/23/17 04:45 MPV 7.3 fl (7.2-11.7) 11/23/17 04:45 Neut % (Auto) 45.6 % (50.0-75.0) L 11/23/17 04:45 Lymph % (Auto) 22.9 % (20.0-40.0) 11/23/17 04:45 Parker % (Auto) 28.6 % (0.0-10.0) H 11/23/17 04:45 Eos % (Auto) 2.9 % (0.0-4.0) 11/23/17 04:45 Baso % (Auto) 0.0 % (0.0-2.0) 11/23/17 04:45 Neut # (Auto) 6.0 K/uL (1.8-7.0) 11/23/17 04:45 Lymph # (Auto) 3.0 K/uL (1.0-4.3) 11/23/17 04:45 Parker # (Auto) 3.8 K/uL (0.0-0.8) H 11/23/17 04:45 Eos # (Auto) 0.4 K/uL (0.0-0.7) 11/23/17 04:45 Baso # (Auto) 0.0 K/uL (0.0-0.2) 11/23/17 04:45 Neutrophils % (Manual) 94 % (42-75) H 11/23/17 04:45 Band Neutrophils % 1 % (0-2) 11/22/17 05:00 Lymphocytes % (Manual) 5 % (20-50) L 11/23/17 04:45 Monocytes % (Manual) 1 % (0-10) 11/23/17 04:45 Platelet Estimate Normal (NORMAL) 11/23/17 04:45 Large Platelets Present 11/23/17 04:45 Giant Platelets Present 11/23/17 04:45 Hypochromasia (manual) Slight 11/22/17 05:00 Anisocytosis (manual) Slight 11/23/17 04:45 Tear Drop Cells Slight 11/22/17 05:00 Ovalocytes Slight 11/22/17 05:00 PT 11.8 Seconds (9.8-13.1) 11/20/17 17:15 INR 1.1 (0.9-1.2) 11/20/17 17:15 APTT 31.5 Seconds (25.6-37.1) 11/20/17 17:15 Sodium 141 mmol/l (132-148) 11/22/17 05:00 Potassium 4.2 MMOL/L (3.6-5.0) 11/22/17 05:00 Chloride 103 mmol/L (98-107) 11/22/17 05:00 Carbon Dioxide 27 mmol/L (22-30) 11/22/17 05:00 Anion Gap 15 (10-20) 11/22/17 05:00 BUN 18 mg/dl (9-20) 11/22/17 05:00 Creatinine 0.9 mg/dl (0.8-1.5) 11/22/17 05:00 Est GFR ( Amer) > 60 11/22/17 05:00 Est GFR (Non-Af Amer) > 60 11/22/17 05:00 POC Glucose (mg/dL) 113 mg/dL (65-110) H 11/23/17 11:24 Random Glucose 139 mg/dL (75-110) H 11/22/17 05:00 Calcium 8.9 mg/dL (8.4-10.2) 11/22/17 05:00 Phosphorus 3.8 mg/dl (2.5-4.5) 11/20/17 17:15 Magnesium 2.0 MG/DL (1.6-2.3) 11/20/17 17:15 Total Bilirubin 0.5 mg/dl (0.2-1.3) 11/20/17 17:15 AST 28 U/L (17-59) 11/20/17 17:15 ALT 27 U/L (21-72) 11/20/17 17:15 Alkaline Phosphatase 59 U/L (38-126) 11/20/17 17:15 Total Protein 7.4 G/DL (6.3-8.2) 11/20/17 17:15 Albumin 4.4 g/dL (3.5-5.0) 11/20/17 17:15 Globulin 3.0 gm/dL (2.2-3.9) 11/20/17 17:15 Albumin/Globulin Ratio 1.5 (1.0-2.1) 11/20/17 17:15 Blood Type A POSITIVE 11/20/17 17:00 Antibody Screen Negative 11/20/17 17:00 BBK History Checked No verified bt 11/20/17 17:00 - Hospital Course Hospital Course: 62 y/o M with hx of CAD with stent, and chronic lumbar pain that was admitted to hosp for sx evaluation of chronic lumbar pain/herniated disc. After cleared by Cardiology patient underwent lumbar laminectomy L3L-5 successfully. Patient was able to start PT during his hosp stay and pain is controlled. Drainage was removed today by NeuroSx team and he was cleared to go home with PT services and follow up as outpatient. Discharge Exam - Head Exam Head Exam: ATRAUMATIC, NORMAL INSPECTION, NORMOCEPHALIC - Eye Exam Eye Exam: PERRL - ENT Exam ENT Exam: Mucous Membranes Moist - Respiratory Exam Respiratory Exam: Clear to PA & Lateral, NORMAL BREATHING PATTERN, UNREMARKABLE - Cardiovascular Exam Cardiovascular Exam: REGULAR RHYTHM - GI/Abdominal Exam GI & Abdominal Exam: Normal Bowel Sounds, Unremarkable - Back Exam Back exam: tenderness (Controlled with meds, mild.) - Neurological Exam Neurological exam: Alert, Oriented x3 - Psychiatric Exam Psychiatric exam: Normal Affect, Normal Mood - Skin Skin Exam: Normal Color, Warm Discharge Plan - Discharge Medications Prescriptions: Dexamethasone [Decadron] 2 mg PO Q12 #6 tab traMADol [Ultram] 50 mg PO Q8 #20 tab - Follow Up Plan Condition: STABLE Disposition: HOME/ ROUTINE Instructions: Laminectomy (DC) Additional Instructions: follow up with in 2 weeks. Referrals: Steven Guerra MD [Staff Provider] - Scar Wharton MD [Staff Provider] -
[2017-11-23 15:11] VITALS: O2SAT 100
== END 2017-11-23 15:52 | disposition home or self-care (01) | DRG 460 ==
LOC: H.ER 15:14 → H.ERHOLD 16:06 → H.MEDSURG1 18:45 → H.TEL 11-21 13:03
PROVIDERS: ADMIT Family Medicine; ATTEND Family Medicine
PROC: 0SG10J1 Fusion of 2 or more Lumbar Vertebral Joints with Synthetic Substitute, Posterior Approach, Posterior Column, Open Approach (ICD-10-PCS; principal; 2017-11-21 07:45)
DX: M51.26 Other intervertebral disc displacement, lumbar region (principal); M47.816 Spondylosis without myelopathy or radiculopathy, lumbar region; B02.9 Zoster without complications; G89.29 Other chronic pain; D72.828 Other elevated white blood cell count; E78.00 Pure hypercholesterolemia, unspecified; I25.10 Atherosclerotic heart disease of native coronary artery without angina pectoris; M21.372 Foot drop, left foot; Z85.048 Personal history of other malignant neoplasm of rectum, rectosigmoid junction, and anus; I25.2 Old myocardial infarction; Z95.5 Presence of coronary angioplasty implant and graft; Z92.21 Personal history of antineoplastic chemotherapy; Z92.3 Personal history of irradiation; Z79.82 Long term (current) use of aspirin